=== PATIENT | female | born 1975 | race Caucasian/White ===

== ENCOUNTER 2016-08-25 19:03 | Emergency (ER) | payer BC ==
[2016-08-25 19:27] VITALS: BP 105/66
[2016-08-25] MEDS ORDERED: Albuterol/Ipratropium 3.0-0.5 MG/3 ML Neb Soln NEB ONE ×2 (20:32→22:40)
[2016-08-25] MEDS ORDERED: methylPREDNISolone Sodium Succinate 125 MG/2 ML SDV IVPUSH ONE (20:33)
--- NOTE | 2016-08-25 20:34 | EDM.PDOC ---
ED HPI GENERAL MEDICAL PROBLEM - General Chief Complaint: Respiratory Problem Stated Complaint: TROUBLE BREATHING Time Seen by Provider: 08/25/16 19:22 Source of Information: Reports: Patient, Family History Limitations: Reports: Respiratory Distress - History of Present Illness INITIAL COMMENTS - FREE TEXT/NARRATIVE: 40 years old w f with h/o asthma came to the ed with SOB. 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 Does not smoke. Onset: Gradual, Unknown/Unsure Onset Date: 08/23/16 Onset Time: 08:00 Duration: Day(s): Location: Reports: Chest Quality: Reports: Same as Previous Episode Severity: Moderate Improves with: Reports: Medication Worsens with: Reports: Cold Therapy Context: Reports: Exercise Chest Pain Score (Numeric/FACES): 8 - Related Data Allergies Allergy/AdvReac Type Severity Reaction Status Date / Time acetaminophen Allergy Nausea Verified 08/25/16 20:57 [From Tylenol-Codeine #3] amoxicillin [From Augmentin] Allergy Nausea and Verified 08/25/16 20:57 Vomiting beclomethasone [From Qvar] Allergy Shortness Verified 08/25/16 20:57 of Breath ciprofloxacin Allergy Shortness Verified 08/25/16 20:57 of Breath clavulanic acid Allergy Nausea and Verified 08/25/16 20:57 [From Augmentin] Vomiting codeine Allergy Nausea Verified 08/25/16 20:57 [From Tylenol-Codeine #3] glipizide Allergy Nausea Verified 08/25/16 20:57 sulfamethoxazole Allergy Nausea Verified 08/25/16 20:57 [From Bactrim] trimethoprim [From Bactrim] Allergy Nausea Verified 08/25/16 20:57 hydrocodone-guaifenesin Allergy Nausea and Uncoded 08/25/16 20:57 Vomiting Home Meds: Home Meds Albuterol Sulfate [Proair Respiclick] 2 inh INH Q4H PRN 08/25/16 [History] Fluticasone/Vilanterol [Breo Ellipta 200-25 Mcg INH] 1 puff INH DAILY 08/25/16 [ History] Hydroxychloroquine Sulfate [Plaquenil] 300 mg PO DAILY 08/25/16 [History] Ibuprofen 800 mg PO TID 08/25/16 [History] Montelukast [Singulair] 10 mg PO BEDTIME 08/25/16 [History] Ranitidine [Zantac] 1 tab PO BID 08/25/16 [History] Triamcinolone Acetonide [Kenalog] 1 applic TOP BID 08/25/16 [History] predniSONE [Prednisone] 20 mg PO DAILY #5 tablet 08/25/16 [Rx] Past Medical History Respiratory History: Reports: Asthma, Bronchitis, Recurrent, Pneumonia, Recurrent Gastrointestinal History: Reports: GERD 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: - Past Surgical History GI Surgical History: Reports: Cholecystectomy Musculoskeletal Surgical History: Reports: Arthroscopic Knee Social & Family History - Tobacco Use Smoking Status *Q: Former Smoker Years of Tobacco use: 25 Packs/Tins Daily: 1 Used Tobacco, but Quit: Yes Month Tobacco Last Used: UNKNOWN Second Hand Smoke Exposure: No - Caffeine Use Caffeine Use: Reports: Coffee - Recreational Drug Use Recreational Drug Use: No ED ROS GENERAL - Review of Systems Review Of Systems: See Below Constitutional: Reports: No Symptoms HEENT: Reports: No Symptoms Respiratory: Reports: Shortness of Breath Cardiovascular: Reports: No Symptoms Endocrine: Reports: No Symptoms GI/Abdominal: Reports: No Symptoms : Reports: No Symptoms Musculoskeletal: Reports: No Symptoms Skin: Reports: No Symptoms Neurological: Reports: No Symptoms Psychiatric: Reports: No Symptoms Hematologic/Lymphatic: Reports: No Symptoms Immunologic: Reports: No Symptoms ED EXAM, GENERAL - Physical Exam Exam: See Below Exam Limited By: Respiratory Distress General Appearance: Alert, WD/WN, Mild Distress, Moderate Distress Eye Exam: Bilateral Eye: Normal Inspection Ears: Normal External Exam Ear Exam: Bilateral Ear: Auricle Normal Nose: Normal Inspection, Normal Mucosa Throat/Mouth: Normal Inspection, Normal Lips, Normal Teeth Head: Atraumatic, Normocephalic Neck: Normal Inspection, Supple Respiratory/Chest: Wheezing (expir) Cardiovascular: Normal Peripheral Pulses, Regular Rate, Rhythm, No Edema GI/Abdominal: Normal Bowel Sounds, Soft, Non-Tender (Female) Exam: Deferred Rectal (Female) Exam: Deferred Back Exam: Normal Inspection, Full Range of Motion Extremities: Normal Inspection, Normal Range of Motion, Non-Tender, No Pedal Edema, Normal Capillary Refill Neurological: Alert, Oriented, CN II-XII Intact, Normal Cognition, Normal Gait Psychiatric: Normal Affect, Normal Mood Skin Exam: Warm, Dry, Intact Lymphatic: No Adenopathy Course - Vital Signs Text/Narrative:: 40 years old w f with h/o asthma came to the ed with SOB. 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 Does not smoke PE: Exp. wheezes Imaging: CXR NAD Labs: Nl CBC/BMP Impression: Asthma exacerbation TX; Solu medrol Duoneb/albuterol neb Reexam: Improved Plan: D/C with instructions. Last Recorded V/S: Last Vital Signs Temp 36.7 C 08/25/16 19:22 Pulse 69 08/25/16 21:44 Resp 22 H 08/25/16 19:22 BP 105/66 08/25/16 19:22 Pulse Ox 95 08/25/16 19:22 - Orders/Labs/Meds Orders: Active Orders 24 hr Category Date Time Status RT Aerosol Therapy [RC] ASDIRECTED Care 08/25/16 20:32 Active RT Aerosol Therapy [RC] ASDIRECTED Care 08/25/16 22:40 Active Chest 2V [CR] Stat Exams 08/25/16 20:32 Taken Labs: Laboratory Tests 08/25/16 08/25/16 08/25/16 Range/Units 20:50 20:50 20:50 WBC 9.6 (4.5-12.0) X10-3/uL RBC 4.96 (3.23-5.20) x10(6)uL Hgb 14.2 (11.5-15.5) g/dL Hct 42.5 (30.0-51.3) % MCV 85.8 (80-96) fL MCH 28.6 (27.7-33.6) pg MCHC 33.3 (32.2-35.4) g/dL RDW 13.6 (11.5-15.5) % Plt Count 298 (125-369) X10(3)uL MPV 8.3 (7.4-10.4) fL Neut % (Auto) 70.4 (46-82) % Lymph % (Auto) 15.8 (13-37) % [place] % (Auto) 7.4 (4-12) % Eos % (Auto) 6 H (1.0-5.0) % Baso % (Auto) 0 (0-2) % Neut # (Auto) 6.8 (1.6-8.3) # Lymph # (Auto) 1.5 (0.6-5.0) # [place] # (Auto) 0.7 (0.0-1.3) # Eos # (Auto) 0.6 (0.0-0.8) # Baso # (Auto) 0.0 (0.0-0.2) # Sodium 138 (135-145) mmol/L Potassium 3.9 (3.5-5.3) mmol/L Chloride 105 (100-110) mmol/L Carbon Dioxide 25 (23-29) mmol/L BUN 9 (5-20) mg/dL Creatinine 0.7 (0.6-1.3) mg/dL Est Cr Clr Drug Dosing 86.60 mL/min Estimated GFR (MDRD) > 60 (>60) BUN/Creatinine Ratio 12.9 (9-20) Glucose 107 (80-116) mg/dL Lactic Acid 0.9 (0.5-2.2) mmol/L Calcium 9.3 (8.6-10.2) mg/dL Urine Color (YELLOW) Urine Appearance (CLEAR) Urine pH (5.0-6.5) Ur Specific [place] (1.010-1.025) Urine Protein (NEGATIVE) mg/dL Urine Glucose (UA) (NEGATIVE) mg/dL Urine Ketones (NEGATIVE) mg/dL Urine Occult Blood (NEGATIVE) Urine Nitrite (NEGATIVE) Urine Bilirubin (NEGATIVE) Urine Urobilinogen (NEGATIVE) mg/dL Ur Leukocyte Esterase (NEGATIVE) Urine RBC (0) Urine WBC (0) Ur Squamous Epith Cells (NS,R,O) Urine Bacteria (NS) Urine Mucus (NS) Urine HCG, Qual (NEGATIVE) 08/25/16 08/25/16 Range/Units 21:54 21:54 WBC (4.5-12.0) X10-3/uL RBC (3.23-5.20) x10(6)uL Hgb (11.5-15.5) g/dL Hct (30.0-51.3) % MCV (80-96) fL MCH (27.7-33.6) pg MCHC (32.2-35.4) g/dL RDW (11.5-15.5) % Plt Count (125-369) X10(3)uL MPV (7.4-10.4) fL Neut % (Auto) (46-82) % Lymph % (Auto) (13-37) % [place] % (Auto) (4-12) % Eos % (Auto) (1.0-5.0) % Baso % (Auto) (0-2) % Neut # (Auto) (1.6-8.3) # Lymph # (Auto) (0.6-5.0) # [place] # (Auto) (0.0-1.3) # Eos # (Auto) (0.0-0.8) # Baso # (Auto) (0.0-0.2) # Sodium (135-145) mmol/L Potassium (3.5-5.3) mmol/L Chloride (100-110) mmol/L Carbon Dioxide (23-29) mmol/L BUN (5-20) mg/dL Creatinine (0.6-1.3) mg/dL Est Cr Clr Drug Dosing mL/min Estimated GFR (MDRD) (>60) BUN/Creatinine Ratio (9-20) Glucose (80-116) mg/dL Lactic Acid (0.5-2.2) mmol/L Calcium (8.6-10.2) mg/dL Urine Color Yellow (YELLOW) Urine Appearance Cloudy (CLEAR) Urine pH 5.0 (5.0-6.5) Ur Specific [place] 1.030 H (1.010-1.025) Urine Protein Negative (NEGATIVE) mg/dL Urine Glucose (UA) Normal (NEGATIVE) mg/dL Urine Ketones Negative (NEGATIVE) mg/dL Urine Occult Blood Negative (NEGATIVE) Urine Nitrite Negative (NEGATIVE) Urine Bilirubin Negative (NEGATIVE) Urine Urobilinogen Normal (NEGATIVE) mg/dL Ur Leukocyte Esterase Negative (NEGATIVE) Urine RBC 0-5 (0) Urine WBC 0-5 (0) Ur Squamous Epith Cells Moderate H (NS,R,O) Urine Bacteria Few H (NS) Urine Mucus Few H (NS) Urine HCG, Qual Negative (NEGATIVE) Meds: Medications Discontinued Medications Generic Name Dose Route Start Last Admin Trade Name Freq PRN Reason Stop Dose Admin Albuterol/Ipratropium 3 ml 08/25/16 20:32 08/25/16 21:22 Duoneb 3.0-0.5 Mg/3 Ml NEB 08/25/16 20:33 3 ml ONETIME ONE Administration Albuterol/Ipratropium 3 ml 08/25/16 22:40 08/25/16 23:14 Duoneb 3.0-0.5 Mg/3 Ml NEB 08/25/16 22:41 3 ml ONETIME ONE Administration Methylprednisolone Sodium Succinate 125 mg 08/25/16 20:33 08/25/16 21:22 Solu-Medrol IVPUSH 08/25/16 20:34 125 mg ONETIME ONE Administration Departure - Departure Time of Disposition: 22:44 Disposition: Home, Self-Care 01 Condition: good Clinical Impression: Asthma exacerbation, Dehydration - Discharge Information Prescriptions: predniSONE [Prednisone] 20 mg PO DAILY #5 tablet Referrals: Lilo Quispe PA [Primary Care Provider] - Forms: ED Department Discharge, Return to Work/School Form Additional Instructions: Please increase water intake, please cont your inhalers, please take the prednison as recommended, please follow up, please come back if your symptoms get worse acutely. - My Orders Last 24 Hours: My Active Orders 08/25/16 20:32 RT Aerosol Therapy [RC] ASDIRECTED Chest 2V [CR] Stat 08/25/16 22:40 RT Aerosol Therapy [RC] ASDIRECTED - Assessment/Plan Last 24 Hours: My Active Orders 08/25/16 20:32 RT Aerosol Therapy [RC] ASDIRECTED Chest 2V [CR] Stat 08/25/16 22:40 RT Aerosol Therapy [RC] ASDIRECTED
--- NOTE | 2016-08-27 12:20 | CR ---
INDICATION: Cough. CHEST: PA and lateral views of the chest 08/25/2016. No comparisons. Heart, mediastinum, and bony thorax were unremarkable. A definite active infiltrate or effusion was not identified. Mild basilar bronchial wall cuffing is noted which could be on the basis of active peribronchial disease and should be correlated clinically. Overlying the retrosternal clear space, there is an appearance of a 12-mm nodular density, which may represent a granuloma, but should be correlated clinically. It is not definitely visualized on the PA view. If old films are available for comparison, they may be of further diagnostic benefit in this regard. IMPRESSION: 1. No definite acute process. There is, however, noted bronchial wall cuffing , which should be correlated clinically. This could represent active peribronchial disease and/or fibrosis. 2. Possible nodular density anterior lung, not definitely visualized on the PA view. If old films are available for comparison, they may be of further diagnostic benefit. Otherwise, CT chest without and possibly with contrast may be helpful. MTDD
== END 2016-08-25 23:25 | disposition home or self-care (01) ==
LOC: FB.ED 19:03
DX: J45.901 Unspecified asthma with (acute) exacerbation (principal); E86.0 Dehydration; K21.9 Gastro-esophageal reflux disease without esophagitis; Z88.1 Allergy status to other antibiotic agents; Z88.8 Allergy status to other drugs, medicaments and biological substances; Z88.2 Allergy status to sulfonamides; Z79.899 Other long term (current) drug therapy; Z90.49 Acquired absence of other specified parts of digestive tract; Z87.891 Personal history of nicotine dependence; Z87.01 Personal history of pneumonia (recurrent)
CPT/HCPCS: 36415; 71020; 80048; 81001; 81025; 83605; 85025; 94664; 96374; 99285; J2930; J7620

== ENCOUNTER 2020-10-11 16:51 | Emergency (ER) | payer BC ==
--- NOTE | 2020-10-11 17:23 | EDM.PDOC ---
ED HPI GENERAL MEDICAL PROBLEM - General Stated Complaint: CHEST PAIN Time Seen by Provider: 10/11/20 17:20 Source of Information: Reports: Patient History Limitations: Reports: No Limitations - History of Present Illness INITIAL COMMENTS - FREE TEXT/NARRATIVE: Ashley is a pleasant 45 yo with left sided,intermittent,sharp pain for 2-3 days. Pain lasts 3-7 seconds,associated with SOB,and radiates to the shoulder. Nothing brings it on,or makes it better. She has a h/o MICHAEL,Intermittent Asthma, and Pulmonary hypertension, due to connective tissue disorder - Related Data Allergies Allergy/AdvReac Type Severity Reaction Status Date / Time acetaminophen Allergy Nausea Verified 08/25/16 20:57 [From Tylenol-Codeine #3] amoxicillin [From Augmentin] Allergy Nausea and Verified 08/25/16 20:57 Vomiting beclomethasone [From Qvar] Allergy Shortness Verified 08/25/16 20:57 of Breath ciprofloxacin Allergy Shortness Verified 08/25/16 20:57 of Breath clavulanic acid Allergy Nausea and Verified 08/25/16 20:57 [From Augmentin] Vomiting codeine Allergy Nausea Verified 08/25/16 20:57 [From Tylenol-Codeine #3] glipizide Allergy Nausea Verified 08/25/16 20:57 sulfamethoxazole Allergy Nausea Verified 08/25/16 20:57 [From Bactrim] trimethoprim [From Bactrim] Allergy Nausea Verified 08/25/16 20:57 hydrocodone-guaifenesin Allergy Nausea and Uncoded 08/25/16 20:57 Vomiting Home Meds: Home Meds Albuterol Sulfate [Proair Respiclick] 2 inh INH Q4H PRN 08/25/16 [History] Fluticasone/Vilanterol [Breo Ellipta 200-25 Mcg INH] 1 puff INH DAILY 08/25/16 [History] Hydroxychloroquine Sulfate [Plaquenil] 300 mg PO DAILY 08/25/16 [History] Ibuprofen 800 mg PO TID 08/25/16 [History] Montelukast [Singulair] 10 mg PO BEDTIME 08/25/16 [History] Ranitidine [Zantac] 1 tab PO BID 08/25/16 [History] Triamcinolone Acetonide [Kenalog] 1 applic TOP BID 08/25/16 [History] predniSONE [Prednisone] 20 mg PO DAILY #5 tablet 08/25/16 [Rx] Past Medical History Respiratory History: Reports: Asthma, Bronchitis, Recurrent, Pneumonia, Recurren t Gastrointestinal History: Reports: GERD 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 ED EXAM, GENERAL - Physical Exam Exam: See Below Exam Limited By: No Limitations General Appearance: Alert, WD/WN, No Apparent Distress Ears: Normal External Exam Ear Exam: Bilateral Ear: Auricle Normal, Canal Normal, TM normal Throat/Mouth: Normal Inspection Head: Atraumatic Neck: Normal Inspection, Supple Respiratory/Chest: No Respiratory Distress, Lungs Clear Cardiovascular: Normal Peripheral Pulses, Regular Rate, Rhythm, No Edema #1 Interpretation EKG Date: 10/11/20 Rhythm: NSR Rate (Beats/Min): 66 [place]: Normal P-Wave: Present Comparison: NA - No Prior EKG Course - Orders/Labs/Meds Orders: Active Orders 24 hr Category Date Time Status EKG Documentation Completion [RC] ASDIRECTED Care 10/11/20 17:03 Active CXR [Chest 2V] [CR] Stat Exams 10/11/20 17:48 Taken EKG 12 Lead [EK] Routine Ther 10/11/20 17:03 Ordered Labs: Laboratory Tests 10/11/20 10/11/20 10/11/20 Range/Units 17:15 17:15 17:15 WBC 5.9 (3.0-10.3) x10-3/uL RBC 4.36 (3.60-5.20) x10(6)uL Hgb 12.7 (11.4-15.5) g/dL Hct 38.7 (34.2-48.2) % MCV 88.6 (76.7-100.5) fL MCH 29.2 (23.9-33.9) pg MCHC 32.9 (31.9-34.8) g/dL RDW 14.3 (12.3-16.5) % Plt Count 301 (151-488) x10(3)uL MPV 7.5 (7.1-12.4) fL Neut % (Auto) 65.2 (30.8-76.2) % Lymph % (Auto) 20.5 (18.4-52.1) % [place] % (Auto) 9.5 (4.4-15.7) % Eos % (Auto) 4.4 (0.6-8.1) % Baso % (Auto) 0.4 (0.2-1.5) % Neut # (Auto) 3.8 (1.5-6.3) x10-3/uL Lymph # (Auto) 1.2 (1.0-4.4) x10-3/uL [place] # (Auto) 0.6 (0.3-1.0) x10-3/uL Eos # (Auto) 0.3 (0.0-0.8) x10-3/uL Baso # (Auto) 0.0 (0.0-0.1) x10-3/uL D-Dimer, Quantitative 0.36 (0.0-0.59) mg/LFEU Sodium 142 (135-145) mmol/L Potassium 3.9 (3.5-5.3) mmol/L Chloride 107 (100-110) mmol/L Carbon Dioxide 26 (21-32) mmol/L BUN 12 (7-18) mg/dL Creatinine 0.8 (0.55-1.02) mg/dL Est Cr Clr Drug Dosing TNP Estimated GFR (MDRD) > 60 (>60) BUN/Creatinine Ratio 15.0 (9-20) Glucose 91 (80-116) mg/dL Calcium 8.8 (8.6-10.2) mg/dL Troponin I (4.0-60.3) pg/mL 10/11/20 Range/Units 17:15 WBC (3.0-10.3) x10-3/uL RBC (3.60-5.20) x10(6)uL Hgb (11.4-15.5) g/dL Hct (34.2-48.2) % MCV (76.7-100.5) fL MCH (23.9-33.9) pg MCHC (31.9-34.8) g/dL RDW (12.3-16.5) % Plt Count (151-488) x10(3)uL MPV (7.1-12.4) fL Neut % (Auto) (30.8-76.2) % Lymph % (Auto) (18.4-52.1) % [place] % (Auto) (4.4-15.7) % Eos % (Auto) (0.6-8.1) % Baso % (Auto) (0.2-1.5) % Neut # (Auto) (1.5-6.3) x10-3/uL Lymph # (Auto) (1.0-4.4) x10-3/uL [place] # (Auto) (0.3-1.0) x10-3/uL Eos # (Auto) (0.0-0.8) x10-3/uL Baso # (Auto) (0.0-0.1) x10-3/uL D-Dimer, Quantitative (0.0-0.59) mg/LFEU Sodium (135-145) mmol/L Potassium (3.5-5.3) mmol/L Chloride (100-110) mmol/L Carbon Dioxide (21-32) mmol/L BUN (7-18) mg/dL Creatinine (0.55-1.02) mg/dL Est Cr Clr Drug Dosing Estimated GFR (MDRD) (>60) BUN/Creatinine Ratio (9-20) Glucose (80-116) mg/dL Calcium (8.6-10.2) mg/dL Troponin I 27.3 (4.0-60.3) pg/mL Departure - Departure Time of Disposition: 18:14 Disposition: Home, Self-Care 01 Condition: Good Clinical Impression: Atypical chest pain Instructions: Nonspecific Chest Pain, Adult Referrals: Lilo Quispe PA [Primary Care Provider] - 2 Days - Problem List & Annotations (1) Atypical chest pain SNOMED Code(s): 409193524 Code(s): R07.89 - OTHER CHEST PAIN Status: Acute Current Visit: No (2) PHT (pulmonary hypertension) SNOMED Code(s): 99295402 Code(s): I27.20 - PULMONARY HYPERTENSION, UNSPECIFIED Status: Acute Current Visit: No (3) MICHAEL (obstructive sleep apnea) SNOMED Code(s): 58032326 Code(s): G47.33 - OBSTRUCTIVE SLEEP APNEA (ADULT) (PEDIATRIC) Status: Acute Current Visit: No (4) Asthma exacerbation SNOMED Code(s): 372944453 Code(s): J45.901 - UNSPECIFIED ASTHMA WITH (ACUTE) EXACERBATION Status: Acute Current Visit: No - Problem List Review Problem List Initiated/Reviewed/Updated: Yes - My Orders Last 24 Hours: My Active Orders 10/11/20 17:03 EKG Documentation Completion [RC] ASDIRECTED EKG 12 Lead [EK] Routine 10/11/20 17:48 CXR [Chest 2V] [CR] Stat - Assessment/Plan Last 24 Hours: My Active Orders 10/11/20 17:03 EKG Documentation Completion [RC] ASDIRECTED EKG 12 Lead [EK] Routine 10/11/20 17:48 CXR [Chest 2V] [CR] Stat Plan: I reviewed her CXR,and it looked normal. EKG was unremarkable,as was her l abs,including Troponin and D dimer. DC home. See Cardiology on 10/20 as scheduled.
[2020-10-11 20:00] VITALS: BP 120/69; PULSE 73
== END 2020-10-11 18:33 | disposition home or self-care (01) ==
LOC: FB.ED 16:51
DX: R07.89 Other chest pain (principal); J45.909 Unspecified asthma, uncomplicated; Z88.0 Allergy status to penicillin; Z88.1 Allergy status to other antibiotic agents; Z88.6 Allergy status to analgesic agent; Z88.5 Allergy status to narcotic agent; Z88.8 Allergy status to other drugs, medicaments and biological substances
CPT/HCPCS: 36415; 71046; 80048; 84484; 85025; 85379; 93005; 99285-25

== ENCOUNTER 2024-01-18 16:27 | Emergency (ER) | payer OTHER ==
[2024-01-18] MEDS ORDERED: methylPREDNISolone Sodium Succinate 125 MG/2 ML SDV IM ONE (17:01)
[2024-01-18] MEDS ORDERED: Sodium Chloride 0.9% 10 ML Syringe FLUSH PRN (17:05)
[2024-01-18 17:16] LABS: BASOPHILS PERCENT AUTO 0.5 % (0.2-1.5); EOSINOPHILS ABSOLUTE AUTO 0.8 x10-3/uL (0.0-0.8); EOSINOPHILS PERCENT AUTO 11.4 % (0.6-8.1); HEMOGLOBIN 11.3 g/dL (11.4-15.5); LYMPHOCYTES ABSOLUTE AUTO 1.2 x10-3/uL (1.0-4.4); LYMPHOCYTES PERCENT AUTO 16.5 % (18.4-52.1); MEAN CORPUSCULAR HEMOGLOBIN 26.3 pg (23.9-33.9); MEAN CORPUSCULAR HGB CONC 31.5 g/dL (31.9-34.8); MEAN CORPUSCULAR VOLUME 83.6 fL (76.7-100.5); MEAN PLATELET VOLUME 8.1 fL (7.1-12.4); MONOCYTES ABSOLUTE AUTO 0.6 x10-3/uL (0.3-1.0); MONOCYTES PERCENT AUTO 8.8 % (4.4-15.7); NEUTROPHILS ABSOLUTE AUTO 4.5 x10-3/uL (1.5-6.3); NEUTROPHILS PERCENT AUTO 62.8 % (30.8-76.2); PLATELET COUNT,PLT 253 x10(3)uL (151-488); RED BLOOD CELL COUNT 4.31 x10(6)uL (3.60-5.20); RED CELL DISTRIBUTION WIDTH 16.1 % (12.3-16.5); WHITE BLOOD CELL COUNT,WBC 7.1 x10-3/uL (3.0-10.3)
[2024-01-18 17:22] LABS: BLOOD UREA NITROGEN,BUN 6 mg/dL (7-18); BUN/CREATININE RATIO 7.5 (9-20); CALCIUM 8.7 mg/dL (8.6-10.2); CARBON DIOXIDE,CO2 29 mmol/L (21-32); CHLORIDE,CL 105 mmol/L (100-110); CREATININE 0.8 mg/dL (0.55-1.02); EST CRCL DRUG DOSING (CG) 69.59 mL/min; ESTIMATED GFR 90 mL/min (>60); GLUCOSE RANDOM 113 mg/dL (80-116); POTASSIUM,K 3.4 mmol/L (3.5-5.3); SODIUM,NA 143 mmol/L (135-145)
[2024-01-18] MEDS: Albuterol/Ipratropium 3.0-0.5 MG/3 ML Neb Soln NEB ONE (17:22)
[2024-01-18] MEDS: Magnesium Sulfate/Water Premix 2 GM in Premix Bag 1 BAG IV ONE (17:26)
[2024-01-18] MEDS: methylPREDNISolone Sodium Succinate 125 MG/2 ML SDV IVPUSH ONE (17:27)
[2024-01-18 17:28] LABS: ALANINE AMINOTRANSFERASE,ALT 41 U/L (12-36); ALBUMIN 3.5 g/dL (3.5-5.2); ALKALINE PHOSPHATASE 80 IU/L (56-112); ASPARTATE AMNIOTRANSFERASE,AST 30 IU/L (5-25); BILIRUBIN TOTAL 0.8 mg/dL (0.1-1.3); PROTEIN TOTAL,TP 7.1 g/dL (6.0-8.0)
[2024-01-18 17:43] VITALS: BP 133/60; PULSE 92
== END 2024-01-18 19:50 | disposition home or self-care (01) ==
LOC: FB.ED 16:27
DX: J45.901 Unspecified asthma with (acute) exacerbation (principal); Z79.52 Long term (current) use of systemic steroids; Z79.899 Other long term (current) drug therapy; Z87.891 Personal history of nicotine dependence; Z88.6 Allergy status to analgesic agent; Z88.0 Allergy status to penicillin; Z88.9 Allergy status to unspecified drugs, medicaments and biological substances; Z88.1 Allergy status to other antibiotic agents; Z88.5 Allergy status to narcotic agent; Z88.8 Allergy status to other drugs, medicaments and biological substances; Z88.2 Allergy status to sulfonamides
CPT/HCPCS: 36415; 71045; 80053; 83735; 84484; 85025; 86140; 93005; 93010; 96365; 96366; 96375; 99284; 99285-25; J2919; J3475; J7620